=== PATIENT | male | born 1950 | race Caucasian/White ===

== ENCOUNTER 2021-12-22 10:53 | Observation (INO) | payer MEDICARE, MEDICAID ==
[~2021-12-22] VITALS: Ht 162.6 cm; Wt 62.1 kg
[2021-12-22] VITALS (11 sets, daily range): BP systolic 138–172; BP diastolic 65–97
[2021-12-22] MEDS ORDERED: diphenhydrAMINE 25mg capsule PO PRN (11:20)
[2021-12-22] MEDS ORDERED: normal saline 1,000 ML IV SCH (11:20)
[2021-12-22] MEDS ORDERED: NITR0.4T48 (11:32)
[2021-12-22] MEDS ORDERED: ATOR20TA66 PO (11:32)
[2021-12-22] MEDS ORDERED: ROPI1TAB6 PO ×2 (11:32→18:18)
[2021-12-22] MEDS ORDERED: LISI10TA27 PO (11:32)
[2021-12-22] MEDS ORDERED: OMEP20CA16 PO (11:35)
[2021-12-22] MEDS ORDERED: CARV-49 PO (11:35)
[2021-12-22 11:51] LABS: BASOPHILS % (AUTO) 0.5 % (0-1); EOSINOPHILS # (AUTO) 0.2 X10'3 (0-0.9); EOSINOPHILS % (AUTO) 3.4 % (0-6); HEMATOCRIT 44.9 % (42.0-52.0); HEMOGLOBIN 15.3 g/dl (14.0-17.9); LYMPHOCYTES # (AUTO) 1.2 X10'3 (1.1-4.8); LYMPHOCYTES % (AUTO) 20.8 % (21-51); MEAN CORPUSCULAR HGB CONC 34.1 g/dL (33.0-36.5); MEAN CORPUSCULAR VOLUME 93.9 FL (78-98); MEAN PLATELET VOLUME 10.3 FL (7.4-10.4); MONOCYTES # (AUTO) 0.5 X10'3 (0-0.9); MONOCYTES % (AUTO) 8.2 % (2-12); NEUTROPHILS # (AUTO) 3.9 X10'3 (1.8-7.7); NEUTROPHILS % (AUTO) 67.1 % (42-75); RED BLOOD COUNT 4.78 X10'6 (4.70-6.10); RED CELL DISTRIBUTION WIDTH 13.6 % (11.5-14.5); WHITE BLOOD COUNT 5.9 X10'3 (4.5-11.0)
[2021-12-22] MEDS ORDERED: IMMU100V4 IV (11:54)
[2021-12-22 11:59] LABS: PLATELET COUNT 48 X10'3 (140-440)
[2021-12-22 12:00] LABS: ALBUMIN 3.3 G/DL (3.4-5.0); ANION GAP 5 (8-16); BLOOD UREA NITROGEN 13 MG/DL (7-18); BUN/CREATININE RATIO 18.3 (5.4-32.0); CALCIUM 8.5 MG/DL (8.5-10.1); CHLORIDE 106 MMOL/L (99-107); CREATININE 0.71 MG/DL (0.60-1.10); GLUCOSE 102 MG/DL (70-104); POTASSIUM 4.5 MMOL/L (3.5-5.1); SODIUM 140 MMOL/L (135-145); TOTAL CARBON DIOXIDE 29.4 MMOL/L (24-32); eGFR > 90 ML/MIN
[2021-12-22 12:39] LABS: BASOPHILS % (AUTO) 0.5 % (0-1); EOSINOPHILS # (AUTO) 0.2 X10'3 (0-0.9); EOSINOPHILS % (AUTO) 3.9 % (0-6); HEMATOCRIT 43.1 % (42.0-52.0); HEMOGLOBIN 14.8 g/dl (14.0-17.9); LYMPHOCYTES # (AUTO) 1.2 X10'3 (1.1-4.8); MEAN CORPUSCULAR HEMOGLOBIN 32.3 PG (27.0-31.0); MEAN CORPUSCULAR HGB CONC 34.3 g/dL (33.0-36.5); MEAN CORPUSCULAR VOLUME 94.3 FL (78-98); MEAN PLATELET VOLUME 10.5 FL (7.4-10.4); MONOCYTES # (AUTO) 0.5 X10'3 (0-0.9); MONOCYTES % (AUTO) 8.3 % (2-12); NEUTROPHILS # (AUTO) 3.7 X10'3 (1.8-7.7); NEUTROPHILS % (AUTO) 66.3 % (42-75); RED BLOOD COUNT 4.58 X10'6 (4.70-6.10); RED CELL DISTRIBUTION WIDTH 13.8 % (11.5-14.5); WHITE BLOOD COUNT 5.5 X10'3 (4.5-11.0)
[2021-12-22 12:41] LABS: PLATELET COUNT 46 X10'3 (140-440)
[2021-12-22] MEDS ORDERED: proCHLORperazine 10 MG/2 ml inj ONE (14:27)
[2021-12-22] MEDS ORDERED: fentaNYL/PF 50MCG/1 ML 2ML syringe ONE (14:28)
[2021-12-22] MEDS ORDERED: heparin 1,000unit/ml 10ml vial 10 ML ONE (14:28)
[2021-12-22] MEDS ORDERED: verapamil 2.5 mg/ml inj IV ONE (14:28)
[2021-12-22] MEDS ORDERED: midazolam 1 mg/ML 2ml injection ONE ×2 (14:28→15:10)
[2021-12-22] MEDS ORDERED: LIDOcaine 1% 30ml preserv. free vial ONE (14:28)
[2021-12-22] MEDS ORDERED: iohexol 350MG/ML 100ml bottle IV ONE (14:28)
[2021-12-22] MEDS ORDERED: nitroGLYCERIN-Tridil 50MG/D5W 250 ML IV ONE (14:29)
[2021-12-22] MEDS ORDERED: phenylephrine 10mg/ml inj. ONE (15:23)
[2021-12-22] MEDS ORDERED: proCHLORperazine 10 MG/2 ml inj IV PRN ×2 (16:55→19:40)
[2021-12-22] MEDS ORDERED: normal saline 1000ml 1,000 ML IV SCH (16:55)
[2021-12-22] MEDS ORDERED: HYDROcodone/acetaminophen 5mg/325mg tablet PO PRN ×2 (16:55→19:40)
[2021-12-22] MEDS ORDERED: ondansetron/PF 4mg/2ml inj IV PRN ×2 (16:55→19:40)
[2021-12-22] MEDS ORDERED: HYDROcodone/acetaminophen 10/325mg tab PO PRN (16:55)
[2021-12-22] MEDS ORDERED: IMMUNE GLOBULIN GAMMA 10 GM IV SCH (18:05)
[2021-12-22] MEDS ORDERED: nitroGLYCERIN 0.4mg SUBLingual tab SL PRN (18:05)
[2021-12-22] MEDS ORDERED: NITR0.4T51 SL ×2 (18:08→18:17)
[2021-12-22] MEDS ORDERED: ketorolac trometh. 30mg/ml inj. IV SCH (18:45)
[2021-12-22] MEDS: normal saline 1000ml 1,000 ML IV SCH ×2 (19:40→22:44)
[2021-12-22] MEDS: carvedilol 6.25mg tablet PO SCH (19:59)
[2021-12-22] MEDS ORDERED: atorvastatin 20mg tablet PO SCH (21:00)
[2021-12-22] MEDS ORDERED: ROPINIRole 1mg tablet PO SCH (21:00)
[2021-12-22] MEDS: HYDROcodone/acetaminophen 10/325mg tab PO PRN (21:20)
[2021-12-23 02:00] VITALS: BP 123/82
[2021-12-23] MEDS: normal saline 1000ml 1,000 ML IV SCH (05:45)
[2021-12-23 06:00] VITALS: BP 139/69
--- NOTE | 2021-12-23 06:25 | NUR ---
Patient in room PCU 3023. I have received report from Ngozi GAONA and had the opportunity to ask questions and assume patient care.
[2021-12-23 06:34] LABS: CHOL/HDL RATIO 4.2 (0.00-4.99); CHOLESTEROL 175 MG/DL (0-200); CREATININE 0.71 MG/DL (0.60-1.10); HDL CHOLESTEROL 42 MG/DL (35-60); LDL CHOLESTEROL 110 MG/DL (50-100); TRIGLYCERIDES 116 MG/DL (20-135); eGFR > 90 ML/MIN
[2021-12-23] MEDS ORDERED: lisinopril 10 MG tablet PO SCH (08:00)
[2021-12-23] MEDS ORDERED: pantoprazole 40mg Tablet.DR PO SCH (08:00)
[2021-12-23] MEDS: HYDROcodone/acetaminophen 10/325mg tab PO PRN (10:28)
[2021-12-23 10:29] VITALS: BP_SYST 139
[2021-12-23] MEDS: carvedilol 6.25mg tablet PO SCH (10:29)
--- NOTE | 2021-12-23 13:08 | NUR ---
Patient stable for discharge per Dr. Friend orders. All discharge instructions reviewed with patient and , and all questions answered. No new prescriptions were ordered. Belongings collected and sent with patient, PIVs discontinued, cannula intact. Tele discontinued. Wheeled to lobby via nursing staff, picked patient up.
== END 2021-12-23 11:30 | disposition home or self-care (01) ==
LOC: SSTAY O 10:53 → PCU 3S 16:20 → UNDOADMOB 16:20 → PCU 3S 17:07
PROVIDERS: ADMIT Internal Medicine Cardiovascular Disease; ATTEND Internal Medicine Cardiovascular Disease
DX: R07.89 Other chest pain (principal); R06.02 Shortness of breath; R94.31 Abnormal electrocardiogram [ECG] [EKG]; I25.2 Old myocardial infarction; Z79.899 Other long term (current) drug therapy; Z95.1 Presence of aortocoronary bypass graft
CPT/HCPCS: 36415; 74176; 80048; 80061; 82565; 83735; 85025; 85610; 87081; 93005; 93458; 96374; C1760; C1769; C1894; G0378; J0780; J1644; J1885; J2250; J2370; J3010; J3490; J7030; Q9967; 99152; 99153; A4620; A5120; A6258; A6402; A6449

== ENCOUNTER 2022-01-26 10:58 | Day surgery (SDC) | payer MEDICARE, MEDICAID ==
[2022-01-26] VITALS (9 sets, daily range): BP systolic 126–179; BP diastolic 59–84
[~2022-01-26] VITALS: Ht 162.6 cm; Wt 62.9 kg
[~2022-01-26 10:58] MED LIST: ATOR20TA66 PO; CARV-49 PO; LISI10TA27 PO; NITR0.4T51 SL; ROPI1TAB6 PO
[2022-01-26] MEDS ORDERED: normal saline 1,000 ML IV SCH (11:45)
[2022-01-26] MEDS ORDERED: diphenhydrAMINE 25mg capsule PO PRN (11:45)
[2022-01-26] MEDS ORDERED: midazolam 1 mg/ML 2ml injection ONE ×2 (11:48→12:52)
[2022-01-26] MEDS ORDERED: fentaNYL/PF 50MCG/1 ML 2ML syringe ONE (11:48)
[2022-01-26] MEDS ORDERED: heparin 1,000unit/ml 10ml vial 10 ML ONE (11:48)
[2022-01-26] MEDS ORDERED: LIDOcaine 1% 30ml preserv. free vial ONE (11:48)
[2022-01-26] MEDS ORDERED: iohexol 350MG/ML 100ml bottle IV ONE ×3 (11:49→13:23)
[2022-01-26] MEDS ORDERED: OMEP40CA21 PO (11:53)
[2022-01-26] MEDS ORDERED: diphenhydrAMINE 50 mg/ml inj ONE (12:12)
[2022-01-26 12:14] LABS: BASOPHILS % (AUTO) 0.7 % (0-1); EOSINOPHILS # (AUTO) 0.2 X10'3 (0-0.9); EOSINOPHILS % (AUTO) 3.8 % (0-6); HEMATOCRIT 50.1 % (42.0-52.0); HEMOGLOBIN 17.1 g/dl (14.0-17.9); LYMPHOCYTES # (AUTO) 1.2 X10'3 (1.1-4.8); LYMPHOCYTES % (AUTO) 23.6 % (21-51); MEAN CORPUSCULAR HEMOGLOBIN 32.4 PG (27.0-31.0); MEAN CORPUSCULAR HGB CONC 34.1 g/dL (33.0-36.5); MEAN PLATELET VOLUME 10.1 FL (7.4-10.4); MONOCYTES # (AUTO) 0.4 X10'3 (0-0.9); MONOCYTES % (AUTO) 7.8 % (2-12); NEUTROPHILS # (AUTO) 3.3 X10'3 (1.8-7.7); NEUTROPHILS % (AUTO) 64.1 % (42-75); RED BLOOD COUNT 5.28 X10'6 (4.70-6.10); RED CELL DISTRIBUTION WIDTH 14.2 % (11.5-14.5); WHITE BLOOD COUNT 5.2 X10'3 (4.5-11.0)
[2022-01-26 12:19] LABS: PLATELET COUNT 32 X10'3 (140-440)
[2022-01-26 12:20] LABS: ANION GAP 8 (8-16); BLOOD UREA NITROGEN 12 MG/DL (7-18); CALCIUM 8.8 MG/DL (8.5-10.1); CHLORIDE 104 MMOL/L (99-107); CREATININE 0.75 MG/DL (0.60-1.10); GLUCOSE 93 MG/DL (70-104); MAGNESIUM 2.1 MG/DL (1.5-2.4); POTASSIUM 4.3 MMOL/L (3.5-5.1); SODIUM 140 MMOL/L (135-145); TOTAL CARBON DIOXIDE 27.8 MMOL/L (24-32); eGFR > 90 ML/MIN
[2022-01-26] MEDS ORDERED: nitroGLYCERIN-Tridil 50MG/D5W 250 ML IV ONE (13:02)
[2022-01-26] MEDS ORDERED: ticagrelor 90mg tablet ONE (13:45)
[2022-01-26] MEDS ORDERED: carvedilol 6.25mg tablet PO SCH (14:26)
[2022-01-26] MEDS ORDERED: lisinopril 10 MG tablet PO SCH (14:27)
[2022-01-26] MEDS ORDERED: pantoprazole 40mg Tablet.DR PO ONE (14:30)
[2022-01-26] MEDS ORDERED: sucralfate 1 gm tablet PO ONE (15:00)
[2022-01-26] MEDS ORDERED: ondansetron/PF 4mg/2ml inj IV PRN (15:10)
[2022-01-26] MEDS ORDERED: HYDROcodone/acetaminophen 5mg/325mg tablet PO PRN (15:10)
[2022-01-26] MEDS ORDERED: normal saline 1000ml 1,000 ML IV SCH (15:10)
[2022-01-26] MEDS ORDERED: HYDROcodone/acetaminophen 10/325mg tab PO PRN (15:10)
[2022-01-26] MEDS ORDERED: hydrocortisone sod succ/PF 100mg/2ml inj. IV ONE (15:15)
[2022-01-27] MEDS ORDERED: ticagrelor 90mg tablet PO SCH (08:00)
== END 2022-01-26 18:05 | disposition home or self-care (01) ==
LOC: SSTAY O 10:58
PROVIDERS: ATTEND Internal Medicine Cardiovascular Disease
DX: R07.9 Chest pain, unspecified (principal); I25.10 Atherosclerotic heart disease of native coronary artery without angina pectoris; I25.2 Old myocardial infarction; I10 Essential (primary) hypertension; E78.5 Hyperlipidemia, unspecified; Z79.899 Other long term (current) drug therapy; Z98.890 Other specified postprocedural states; Z82.49 Family history of ischemic heart disease and other diseases of the circulatory system; Z72.89 Other problems related to lifestyle; Z79.01 Long term (current) use of anticoagulants; Z88.7 Allergy status to serum and vaccine; Z95.5 Presence of coronary angioplasty implant and graft
CPT/HCPCS: 36415; 80048; 83735; 85025; 85610; 92978; 93005; 93458; 99152; 99153; C1725; C1751; C1753; C1757; C1760; C1769; C1874; C1894; C9600; C9601; J1200; J1644; J1720; J2250; J3010; J3490; J7030; Q9967; A4620; A6258; A6449

== ENCOUNTER 2024-09-29 11:23 | Inpatient (IN) | payer MEDICARE, MEDICAID ==
[~2024-09-29] VITALS: Ht 167.6 cm; Wt 61.2 kg
[~2024-09-29 11:23] MED LIST changes: +OMEP40CA21 PO; +ROPI1TAB47 PO; -ROPI1TAB6 PO
[2024-09-29] MEDS ORDERED: HYDROcodone/acetaminophen 5mg/325mg tablet PO PRN (11:45)
[2024-09-29] MEDS ORDERED: ondansetron/PF 4mg/2ml inj IV PRN (11:45)
[2024-09-29] MEDS ORDERED: potassium Cl 20 mEq SR tablet PO PRN ×2 (11:45)
[2024-09-29] MEDS ORDERED: magnesium sulf-water 4G/100mL 100 ML IV PRN (11:45)
[2024-09-29] MEDS ORDERED: potassium Cl 40MEQ/1/2NS 520ml 520 ML IV PRN (11:45)
[2024-09-29] MEDS ORDERED: magnesium Cl slow-release 64mg tablet PO PRN (11:45)
[2024-09-29] MEDS ORDERED: acetaminophen 325mg tablet PO PRN ×2 (11:45)
[2024-09-29] MEDS ORDERED: magnesium sulf-water 2g/50mL 50 ML IV PRN (11:45)
[2024-09-29] MEDS ORDERED: morphine 2 MG/ML inj. syringe IV PRN ×2 (11:45)
[2024-09-29] MEDS ORDERED: heparin 10,000 units/1 ML INJ IV ONE (11:45)
[2024-09-29] MEDS ORDERED: heparin 10,000 units/1 ML INJ IV PRN (11:55)
[2024-09-29] MEDS ORDERED: heparin 25,000 UNIT/250ml bag 250 ML IV PRN (11:55)
[2024-09-29 11:57] LABS: BASOPHILS % (AUTO) 0.4 % (0-1); EOSINOPHILS % (AUTO) 0.2 % (0-6); HEMATOCRIT 36.3 % (42.0-52.0); HEMOGLOBIN 12.6 g/dl (14.0-17.9); LYMPHOCYTES # (AUTO) 1.3 X10'3 (1.1-4.8); MEAN CORPUSCULAR HGB CONC 34.6 g/dL (33.0-36.5); MEAN CORPUSCULAR VOLUME 92.6 FL (78-98); MEAN PLATELET VOLUME 9.5 FL (7.4-10.4); MONOCYTES # (AUTO) 0.6 X10'3 (0-0.9); MONOCYTES % (AUTO) 9.2 % (2-12); NEUTROPHILS # (AUTO) 4.7 X10'3 (1.8-7.7); NEUTROPHILS % (AUTO) 70.2 % (42-75); PLATELET COUNT 137 X10'3 (140-440); RED BLOOD COUNT 3.92 X10'6 (4.70-6.10); RED CELL DISTRIBUTION WIDTH 13.8 % (11.5-14.5); WHITE BLOOD COUNT 6.7 X10'3 (4.5-11.0)
[2024-09-29 12:04] LABS: INR 1.1 INR; PROTHROMBIN TIME 11.4 SECONDS (9.0-12.0)
[2024-09-29 12:07] LABS: ALANINE AMINOTRANSFERASE 23 U/L (12-78); ALBUMIN 2.9 G/DL (3.4-5.0); ALBUMIN/GLOBULIN RATIO 0.9 (1.1-1.5); ALKALINE PHOSPHATASE 102 IU/L (46-116); ANION GAP 6 (8-16); ASPARTATE AMINO TRANSFERASE 31 U/L (10-37); BILIRUBIN,TOTAL 0.6 MG/DL (0.1-1.0); BLOOD UREA NITROGEN 11 MG/DL (7-18); CALCIUM 8.1 MG/DL (8.5-10.1); CHLORIDE 113 MMOL/L (99-107); CREATININE 0.61 MG/DL (0.60-1.10); GLUCOSE 93 MG/DL (70-104); POTASSIUM 4.2 MMOL/L (3.5-5.1); SODIUM 145 MMOL/L (135-145); TOTAL CARBON DIOXIDE 26.4 MMOL/L (24-32); TOTAL PROTEIN 6.1 G/DL (6.4-8.2); eCRCL 95 ML/MIN; eGFR > 90 ML/MIN
[2024-09-29 12:13] LABS: PRO BRAIN NATRIURETIC PEPTIDE 1286 PG/ML (0-125)
[2024-09-29] MEDS: HEPARIN DRIP-CARDIAC**PHARMACIST-TO-DOSE IV ONE (12:16)
[2024-09-29] MEDS: HEPARIN DRIP INITAL BOLUS --- DO NOT GIVE/ORDER MC ONE (12:16)
[2024-09-29] MEDS: heparin 25,000 UNIT/250ml bag 250 ML IV PRN (12:46)
[2024-09-29] MEDS: heparin 10,000 units/1 ML INJ IV PRN (12:47)
[2024-09-29] MEDS: MESSAGE TO NURSING IV ONE ×2 (12:50→19:56)
[2024-09-29] MEDS: normal saline 1000ml 1,000 ML IV SCH (12:50)
[2024-09-29 15:30] VITALS: BP 150/83; PULSE 83; RESP 16; TEMP 98.2; O2SAT 99
[2024-09-29] MEDS ORDERED: PRAM0.258 PO (17:15)
[2024-09-29 18:00] VITALS: BP 123/52; PULSE 84; RESP 16; TEMP 97.8; O2SAT 100
[2024-09-29] MEDS: hydrOXYzine 10 MG tablet PO PRN (19:29)
[2024-09-29] MEDS: HYDROcodone/acetaminophen 10/325mg tab PO PRN (19:30)
[2024-09-29 20:00] VITALS: RESP 16; O2SAT 100
[2024-09-29 22:00] VITALS: BP 138/58; PULSE 84; RESP 16; TEMP 97.8; O2SAT 98
[2024-09-29] MEDS: pramipexole 0.25mg tablet PO SCH (22:11)
[2024-09-29] MEDS: carvedilol 6.25mg tablet PO SCH (22:12)
[2024-09-30] VITALS (19 sets, daily range): BP systolic 100–148; BP diastolic 48–96; PULSE 61–84; RESP 10–21; TEMP 97.7–98.2; O2SAT 86–98
[2024-09-30 02:24] LABS: BASOPHILS % (AUTO) 0.6 % (0-1); EOSINOPHILS # (AUTO) 0.1 X10'3 (0-0.9); EOSINOPHILS % (AUTO) 1.2 % (0-6); HEMATOCRIT 35.6 % (42.0-52.0); HEMOGLOBIN 12.6 g/dl (14.0-17.9); LYMPHOCYTES # (AUTO) 1.5 X10'3 (1.1-4.8); LYMPHOCYTES % (AUTO) 27.2 % (21-51); MEAN CORPUSCULAR HEMOGLOBIN 32.9 PG (27.0-31.0); MEAN CORPUSCULAR HGB CONC 35.4 g/dL (33.0-36.5); MEAN CORPUSCULAR VOLUME 92.9 FL (78-98); MEAN PLATELET VOLUME 10.8 FL (7.4-10.4); MONOCYTES # (AUTO) 0.4 X10'3 (0-0.9); MONOCYTES % (AUTO) 7.5 % (2-12); NEUTROPHILS # (AUTO) 3.6 X10'3 (1.8-7.7); NEUTROPHILS % (AUTO) 63.5 % (42-75); PLATELET COUNT 116 X10'3 (140-440); RED BLOOD COUNT 3.83 X10'6 (4.70-6.10); RED CELL DISTRIBUTION WIDTH 14.1 % (11.5-14.5); WHITE BLOOD COUNT 5.6 X10'3 (4.5-11.0)
[2024-09-30 02:25] LABS: CHOLESTEROL 90 MG/DL (0-200); HDL CHOLESTEROL 45 MG/DL (35-60); LDL CHOLESTEROL 39 MG/DL (50-100); TRIGLYCERIDES 62 MG/DL (20-135)
[2024-09-30] MEDS: MESSAGE TO NURSING IV ONE (02:30)
[2024-09-30] MEDS ORDERED: midazolam 1 mg/ML 2ml injection ONE (07:14)
[2024-09-30] MEDS ORDERED: verapamil 2.5 mg/ml inj IV ONE (07:14)
[2024-09-30] MEDS ORDERED: LIDOcaine 1% 30ml preserv. free vial ONE (07:14)
[2024-09-30] MEDS ORDERED: iohexol 350MG/ML 100ml bottle IV ONE (07:14)
[2024-09-30] MEDS ORDERED: heparin 1,000unit/ml 10ml vial 10 ML ONE (07:14)
[2024-09-30] MEDS ORDERED: fentaNYL/PF 50MCG/1 ML 2ML syringe ONE (07:14)
[2024-09-30] MEDS ORDERED: nitroGLYCERIN 500mcg/5mL D5W 5 ML IV ONE (07:15)
[2024-09-30] MEDS: atorvastatin 20mg tablet PO SCH (09:49)
[2024-09-30] MEDS: pantoprazole 40mg Tablet.DR PO SCH (09:49)
[2024-09-30] MEDS: aspirin 81mg tab.chew PO SCH (09:49)
[2024-09-30] MEDS: prednisone 10mg tablet PO SCH (09:49)
[2024-09-30] MEDS: lisinopril 10 MG tablet PO SCH (09:51)
[2024-10-01 02:00] VITALS: BP 143/55; PULSE 83; RESP 17; TEMP 97.7; O2SAT 98
[2024-10-01 07:00] LABS: BASOPHILS % (AUTO) 0.4 % (0-1); EOSINOPHILS # (AUTO) 0.1 X10'3 (0-0.9); EOSINOPHILS % (AUTO) 1.4 % (0-6); HEMATOCRIT 37.4 % (42.0-52.0); HEMOGLOBIN 12.8 g/dl (14.0-17.9); LYMPHOCYTES # (AUTO) 1.3 X10'3 (1.1-4.8); MEAN CORPUSCULAR HEMOGLOBIN 31.6 PG (27.0-31.0); MEAN CORPUSCULAR HGB CONC 34.1 g/dL (33.0-36.5); MEAN CORPUSCULAR VOLUME 92.6 FL (78-98); MEAN PLATELET VOLUME 10.8 FL (7.4-10.4); MONOCYTES # (AUTO) 0.6 X10'3 (0-0.9); MONOCYTES % (AUTO) 10.6 % (2-12); NEUTROPHILS # (AUTO) 3.5 X10'3 (1.8-7.7); NEUTROPHILS % (AUTO) 63.6 % (42-75); PLATELET COUNT 137 X10'3 (140-440); RED BLOOD COUNT 4.04 X10'6 (4.70-6.10); RED CELL DISTRIBUTION WIDTH 14.1 % (11.5-14.5); WHITE BLOOD COUNT 5.4 X10'3 (4.5-11.0)
[2024-10-01 08:08] LABS: LARGE PLATELETS FEW; PLATELET ESTIMATE DECREASED
[2024-10-01 08:42] VITALS: BP 135/49; PULSE 72; RESP 12; TEMP 98; O2SAT 100
[2024-10-01] MEDS: isosorbide mononitrate 30mg tab.SR.24H PO SCH (08:49)
[2024-10-01 09:14] VITALS: RESP 12
[2024-10-01] MEDS ORDERED: SPIR25TA PO (10:37)
[2024-10-01] MEDS ORDERED: CLOP-32 PO (10:37)
[2024-10-01] MEDS ORDERED: EMPA10TA PO (10:37)
[2024-10-01] MEDS ORDERED: ISOS30TA84 PO (10:37)
[2024-10-01] MEDS ORDERED: ASPI81TA53 PO (10:37)
[2024-10-01] MEDS ORDERED: FURO-150 PO (10:37)
[2024-10-01 11:03] VITALS: BP 124/59; PULSE 64; RESP 20; TEMP 98; O2SAT 98
[2024-10-01 11:48] VITALS: BP_SYST 116; PULSE 74
[2024-10-01] MEDS: spironolactone 25 MG tablet PO SCH (11:48)
[2024-10-01] MEDS: EMPAGLIFLOZIN 10 MG TABLET PO SCH (11:49)
== END 2024-10-01 13:25 | disposition home or self-care (01) | DRG 281 ==
LOC: ER 11:24 → ED HOLD 11:46 → PCU 3S 15:58
PROVIDERS: ADMIT Internal Medicine; ATTEND Internal Medicine
PROC: 4A023N7 Measurement of Cardiac Sampling and Pressure, Left Heart, Percutaneous Approach (ICD-10-PCS; principal; 2024-09-30)
PROC: B2111ZZ Fluoroscopy of Multiple Coronary Arteries using Low Osmolar Contrast (ICD-10-PCS; 2024-09-30)
PROC: B2151ZZ Fluoroscopy of Left Heart using Low Osmolar Contrast (ICD-10-PCS; 2024-09-30)
DX: T82.855A Stenosis of coronary artery stent, initial encounter (principal); G61.81 Chronic inflammatory demyelinating polyneuritis; I21.4 Non-ST elevation (NSTEMI) myocardial infarction; I50.22 Chronic systolic (congestive) heart failure; I25.10 Atherosclerotic heart disease of native coronary artery without angina pectoris; I11.0 Hypertensive heart disease with heart failure; Y83.8 Other surgical procedures as the cause of abnormal reaction of the patient, or of later complication, without mention of misadventure at the time of the procedure; Y92.89 Other specified places as the place of occurrence of the external cause; Z88.7 Allergy status to serum and vaccine; Z79.899 Other long term (current) drug therapy; Z88.8 Allergy status to other drugs, medicaments and biological substances; Z95.5 Presence of coronary angioplasty implant and graft; Z87.891 Personal history of nicotine dependence
CPT/HCPCS: 36415; 71045; 80053; 80061; 83880; 84484; 85008; 85025; 85610; 85730; 87081; 93005; 93306; 93458; 97161; 97530; 99152; 99285; A6258; C1760; C1894; G0378; J1644; J2003; J2250; J3010; J3490; J7030; J7512; Q9967